=== PATIENT | male | born 1990 | race Caucasian/White ===

== ENCOUNTER 2017-03-12 21:20 | Inpatient (IN) | payer OTHER ==
[~2017-03-12] VITALS: Ht 172.7 cm; Wt 69.5 kg
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
--- NOTE | ~2017-03-12 | DS ---
PATIENT'S NAME: PAO BAKER [facility] AGE: 27 Y [address] ROOM: [id number] [place], [place] [address] LOCATION: GICU ADMIT DATE: 03/12/2017 Discharge Summary DISCHARGE DATE: 03/18/2017 FAMILY PHYSICIAN: Physician, Unknown ATTENDING PHYSICIAN: Manasa Kennedy HOSPITAL COURSE: Mr. Baker had a polytrauma crush injury, lateral compression injury to the pelvis with comminuted fractures of the right sacrum with lumbar 5 nerve root injury, comminuted unstable pelvic ring fractures with significant displacement, disruption of the pubic symphysis, and comminuted fractures of the anterior wall of the right acetabulum. He was observed. No additional injuries found. His hemoglobin was stable. He was protected in a pelvic binder and bedrest. Surgery was delayed for 72 hours to allow for hemostasis. Taken to the operating room, open reduction and internal fixation of the right sacrum, the pubic symphysis, the right pelvic ring, and the right hip anterior acetabular wall. With the degree of comminution, did not feel that the plate fixation by itself was adequate. Added an in-fix as well. Procedure was done without complication. POSTOPERATIVE COURSE: His neurologic function had returned to normal. Right hip easily move without pain. He was mobilized, full weightbearing on the left. Pain was controlled. He was able to eat without nausea and vomiting. Garvey was discontinued, he voided, and he had a bowel movement. Hemoglobin was stable. Ready for discharge to home. DIET: Regular diet. ACTIVITY: Full weight bear on the left. Toe-touch weight bear only on the right. He has been given crutches, walker, and a wheelchair. Change the dressing each day. I have instructed the patient and the family how to do passive range of motion of the right hip to promote the acetabular cartilage healing. Pain will be controlled with initially Percocet, then transition to [place] and as he continues to improve, to Tylenol. We discussed the high risks of DVTs with these pelvic injuries. Discharged on Lovenox 40 mg once a day. We will plan to continue for up to 2 months. Also, given iron sulfate and Colace. He has been prescribed elevated toilet seat. He has a shower chair available at home. FOLLOWUP: Scheduled to follow up with Dr. Kennedy on March 31, 2017, at 10:00 a.m. X-rays have been ordered at the [facility] at 9:00 a.m., pelvis inlet and outlet views. This injury occurred at work. Unable to do his work at this time. Will most likely be 4 months before ready for regular work. PATIENT'S NAME: PAO BAKER [facility] AGE: 27 Y [address] ROOM: [address] [address] LOCATION: [facility] ADMIT DATE: 03/12/2017 Discharge Summary DISCHARGE DATE: 03/18/2017 FAMILY PHYSICIAN: Physician, Unknown ATTENDING PHYSICIAN: Manasa Kennedy MANASA KENNEDY MD DPM/ninol /[id number] d: 03/18/17 2228 t: 04/09/17 1006, DISCHARGE SUMMARY
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
[2017-03-12 22:48] LABS: BILIRUBIN URINE NEGATIVE (NEGATIVE); BLOOD URINE 10 /UL (NEGATIVE); COLOR URINE YELLOW (YELLOW); GLUCOSE URINE NEGATIVE (NEGATIVE); KETONE URINE 50 mg/dL (NEGATIVE); LEUKOCYTES URINE NEGATIVE /UL (NEGATIVE); NITRITE URINE NEGATIVE (NEGATIVE); PROTEIN URINE 15 mg/dL (NEGATIVE); TURBIDITY URINE CLEAR (CLEAR); UROBILINOGEN URINE NORMAL (NORMAL)
[2017-03-12 22:56] LABS: EPITHELIAL URINE RARE #/HPF (NEGATIVE); WBC URINE 0-2 #/HPF (NEGATIVE)
[2017-03-12 22:57] LABS: BACTERIA URINE FEW (NEGATIVE); MUCUS URINE 2+ (NEGATIVE)
[2017-03-14 05:53] LABS: BASOPHIL % 0.2 %; EOSINOPHIL # 0.1 K/uL (0.0-0.5); EOSINOPHIL % 0.8 %; HEMATOCRIT 27.5 % (37.0-53.0); HEMOGLOBIN 9.5 g/dL (12.0-17.0); IMMATURE GRANULOCYTE % 0.3 %; LYMPHOCYTE # 1.4 K/uL (0.8-4.0); LYMPHOCYTE % 21.8 %; MCH 31.8 pg (27.0-34.0); MCHC 34.5 gm/dL (32.0-36.5); MONOCYTE # 0.5 K/uL (0.0-1.0); MONOCYTE % 8.1 %; MPV 11.3 fl (9.4-12.4); NEUTROPHIL # (ANC) 4.5 K/uL (1.4-9.0); NEUTROPHIL % 68.8 %; NRBC % 0 /100WBC (0-0.00); PLATELET COUNT 133 K/uL (150-450); RBC 2.99 M/uL (4.00-6.00); RDW-CV 12.8 % (11.9-14.6); WBC 6.5 K/uL (4.0-11.0)
[2017-03-14 06:10] LABS: ANION GAP 9.9 (10.0-19.0); BLOOD UREA NITROGEN 9 mg/dL (6-24); CALCIUM 8.1 mg/dL (8.5-10.5); CHLORIDE 106 mMol/L (96-110); CO2 28 mMol/L (22-32); CPK 398 IU/L (35-332); CREATININE 0.9 mg/dL (0.6-1.3); ESTIMATED GFR (MDRD EQUATION) > 60; POTASSIUM 3.9 mMol/L (3.7-5.1); SODIUM 140 mMol/L (135-145)
[2017-03-15 16:20] LABS: BICARBONATE 24.2 mmol/L (18.0-23.0); PCO2 38 mmHg (35-45); PO2 468 mmHg (80-90); POTASSIUM 4.8 mEq/L (3.7-5.1); SODIUM 136 mEq/L (135-145)
[2017-03-15 16:30] LABS: PCO2 43 mmHg (35-45)
[2017-03-15 16:31] LABS: BICARBONATE 21.5 mmol/L (18.0-23.0); PO2 189 mmHg (80-90); POTASSIUM 5.2 mEq/L (3.7-5.1); SODIUM 138 mEq/L (135-145)
[2017-03-16 11:01] LABS: BLOOD UREA NITROGEN 11 mg/dL (6-24); CALCIUM 8.1 mg/dL (8.5-10.5); CHLORIDE 104 mMol/L (96-110); CO2 29 mMol/L (22-32); CREATININE 0.8 mg/dL (0.6-1.3); ESTIMATED GFR (MDRD EQUATION) > 60; MAGNESIUM 2.2 mg/dL (1.8-2.6); SODIUM 138 mMol/L (135-145)
[2017-03-18] MEDS ORDERED: SURFAK240 MG PO (10:57)
[2017-03-18] MEDS ORDERED: LOVENOX 4040 MG/0.4 SUB-Q (10:58)
[2017-03-18] MEDS ORDERED: FEOSOL325 MG PO (10:58)
[2017-03-18] MEDS ORDERED: NORCO 10-325 T1 EACH PO (11:02)
[2017-03-18] MEDS ORDERED: PERCOCET 5-3251 EACH PO (11:03)
== END 2017-03-18 12:18 | disposition disaster alternative care site (69) | DRG 515 ==
LOC: GACC 21:20 → GICU 23:05
PROVIDERS: Emergency Medicine; Hospitalist; ADMIT Orthopaedic Surgery
DX: S32.10XA Unspecified fracture of sacrum, initial encounter for closed fracture (principal); S32.411A Displaced fracture of anterior wall of right acetabulum, initial encounter for closed fracture; D69.6 Thrombocytopenia, unspecified; S32.810A Multiple fractures of pelvis with stable disruption of pelvic ring, initial encounter for closed fracture; D62 Acute posthemorrhagic anemia; E87.5 Hyperkalemia; S34.21XA Injury of nerve root of lumbar spine, initial encounter; S38.1XXA Crushing injury of abdomen, lower back, and pelvis, initial encounter; V86.59XA Driver of other special all-terrain or other off-road motor vehicle injured in nontraffic accident, initial encounter; M43.16 Spondylolisthesis, lumbar region; K59.00 Constipation, unspecified
CPT/HCPCS: C1713; J0690; J1170; J1650; J2175; J2250; J2270; J3010; J3360; J7030; J7120; P9016; P9045; Q9967

== ENCOUNTER → 2017-03-12 | Outpatient (CLI) | payer OTHER ==
[~2017-03-12] MED LIST: FEOSOL325 MG PO; LOVENOX 4040 MG/0.4 SUB-Q; NORCO 10-325 T1 EACH PO; PERCOCET 5-3251 EACH PO; SURFAK240 MG PO
== END | disposition disaster alternative care site (69) ==
LOC: GAMB 20:03
DX: S39.93XA Unspecified injury of pelvis, initial encounter (principal); M25.552 Pain in left hip; R10.2 Pelvic and perineal pain; V89.9XXA Person injured in unspecified vehicle accident, initial encounter
CPT/HCPCS: A0422; A0425; A0428

== ENCOUNTER → 2017-03-31 | Outpatient (CLI) | payer OTHER | END | disposition disaster alternative care site (69) | LOC: GRAD 09:00 | DX: S32.9XXD Fracture of unspecified parts of lumbosacral spine and pelvis, subsequent encounter for fracture with routine healing (principal); Z96.9 Presence of functional implant, unspecified ==

== ENCOUNTER → 2017-05-05 | Outpatient (CLI) | payer OTHER | END | disposition disaster alternative care site (69) | LOC: GRAD 09:43 | DX: S38.1XXD Crushing injury of abdomen, lower back, and pelvis, subsequent encounter (principal); X58.XXXD Exposure to other specified factors, subsequent encounter ==

== ENCOUNTER → 2017-06-02 | Outpatient (CLI) | payer OTHER | END | disposition disaster alternative care site (69) | LOC: GRAD 08:24 | DX: S32.9XXD Fracture of unspecified parts of lumbosacral spine and pelvis, subsequent encounter for fracture with routine healing (principal); X58.XXXD Exposure to other specified factors, subsequent encounter ==